=== PATIENT | female | born 1985 | race Caucasian/White ===

== ENCOUNTER 2022-05-11 13:38 | Outpatient (REF) | payer MEDICAID, SELFPAY | END 2022-05-11 13:39 | disposition home or self-care (01) | LOC: LBN 13:38 | PROVIDERS: PCP Specialist/Technologist Athletic Trainer; Visit Provider Physician Assistant | DX: J02.9 Acute pharyngitis, unspecified (principal) | CPT/HCPCS: 87077; 87070 ==

== ENCOUNTER 2023-07-16 09:19 | Emergency (ER) | payer MEDICAID, SELFPAY ==
[2023-07-16 09:25] VITALS: BP 141/88; PULSE 113; RESP 16; TEMP 36.8; O2SAT 99
[2023-07-16 09:36] VITALS: RESP 16
--- NOTE | 2023-07-16 10:29 | W.ED.GENAD ---
Discharge Plan Disposition Patient Disposition: Home Discharge Details Clinical Impression: Acute streptococcal pharyngitis Primary Care Provider: Armand Serrano ED Provider: Kendell Toledo Home Meds and New Rx's Prescriptions: New amoxicillin 500 mg tablet 500 mg PO BID 10 Days Qty: 20 0RF Continued acetaminophen [Tylenol] 325 MG tablet 650 mg PO Q4H PRN [id number] Discharge Instructions Instructions: Strep Throat (ED) Additional Instructions: You may continue to take [id number] acetaminophen or ibuprofen as needed for discomfort. Please stay well-hydrated and take antibiotics as prescribed and for the full 10 days. If you have any new or significant worsening of symptoms feel free to return the emergency department for reassessment otherwise follow-up with your primary care provider if not improving. Referrals: Armand Serrano [Primary Care Provider] - (If not improving please follow-up with your primary care provider) Discharge Data Discharge Date/Time-TO BE ENTERED AT DEPARTURE: 07/16/23 10:40 Medical Decision Making Patient presenting to the emergency department for chief complaint of sore throat. She states some headache and dry cough but the cough she mostly attributes to her irritated throat. Exam consistent with Pharyngitis. no signs of deep neck space infection ( Retropharyngeal abscess, Angel's angina, Parapharyngeal space infection, Peritonsillar Abscess ([employer])) or Epiglottitis. Pt non toxic and stable. Patient negative for COVID and flu and positive for strep pharyngitis. Patient placed upon antibiotics and encouraged to monitor symptoms and return for new or worsening otherwise to follow-up with primary care provider. After discussion of diagnosis and plan of care patient has no further needs, questions, or concerns and states clear understanding to return to the emergency department for any worsening symptoms. This documentation was generated using [employer] system, please disregard any oddities of phrase or misspellings. Lab Data Lab results reviewed: Yes I reviewed the patient's lab results. HPI General Mode of arrival: ambulatory. Date/Time Provider Initiated Documentation: 07/16/23 09:30. Information obtained by: patient and RN notes reviewed. History of Present Illness 38 year old F presents to the emergency department with the chief complaint of Sore throat, described as moderate and severe, Quality is described as aching and sharp, Patient started experiencing this day(s) (1) and it has been constant. No relieving factors improve symptom(s), No exacerbating factors reported . Patient notes headaches. Patient did receive the following treatments prior to arrival, NSAID Related Data Home Medications Medication Instructions Recorded Confirmed acetaminophen 325 mg tablet 650 mg (2 x 325 mg) PO Q4H PRN PRN 09/01/17 07/16/23 (Tylenol) amoxicillin 500 mg tablet 500 mg PO BID 10 days #20 tabs 07/16/23 Previous Rx's Medication Instructions Recorded acetaminophen 325 mg tablet 650 mg (2 x 325 mg) PO Q4H PRN PRN 09/01/17 (Tylenol) amoxicillin 500 mg tablet 500 mg PO BID 10 days #20 tabs 07/16/23 Allergies Allergy/AdvReac Type Severity Reaction Status Date / Time sesonal allergies Allergy Uncoded 07/16/23 09:50 General Stated Complaint: GenMedical YURIY: 4 Review of Systems Constitutional Constitutional: Denies chills, Denies fever(s), Reports headache(s) and Reports malaise ENT Ears, Nose, Mouth, and Throat: Reports headache(s) and Reports sore throat Cardiovascular Cardiovascular: Denies chest pain and Denies dyspnea Respiratory Respiratory: Reports cough and Denies dyspnea Integumentary/Breasts Skin/Breast: Denies rash Neurologic Neurologic: Reports headache(s) PFSH All Active Problems Acute streptococcal pharyngitis (Acute) Anxiety (Acute) Medical History depression associated with first Was treated antidepressiants and took them for 6-7 years, through second . No not taking any medication Depression stopped taking Zanax 1 year ago, feeling well without medication Family History Father Diabetes Mother Depression Sister No problems noted. Sister No problems noted. Brother No problems noted. Brother No problems noted. Daughter No problems noted. Daughter No problems noted. Grandfather , pancreatic cancer Pancreatic cancer Polio Social History Smoking/Tobacco Use Status: Current every day Smoking risk assessment performed?: Yes Alcohol Intake: never Drug use: Daily Substance use type: marijuana Housing: house Do you feel safe at home: Yes Do you feel safe in your relationship?: Yes Exam Const General: cooperative, healthy appearing, comfortable, no acute distress and not ill appearing Orientation: alert, awake and oriented x3 HENMT Head: normal to inspection and normocephalic Ears: hearing grossly normal bilaterally, external ears normal, TM's normal bilaterally and mastoids normal General nose exam: external nose normal and nares normal Face and sinus: normal facial exam and sinuses nontender Mouth: oral mucosae normal, lip normal, tongue normal, no audible dysphonia, no drooling and no trismus Throat: uvula midline, abnormal tonsil bilaterally erythema and hypertrophy 2+ and no peritonsillar masses Neck Neck: normal visual inspection, full ROM, no lymphadenopathy and no meningeal signs Resp Effort & Inspection: normal respiratory effort, able to speak in complete sentences and no stridor Auscultation: clear to auscultation bilaterally Cardio Rate: tachycardic Rhythm: regular rhythm Heart Sounds: S1 normal and S2 normal Skin General skin exam: no rashes or lesions noted Course Vital Signs Vital signs: Vital Signs Temperature 36.8 C 07/16/23 09:25 Pulse 113 H 07/16/23 09:25 Respiratory Rate 16 07/16/23 09:25 Blood Pressure 141/88 H 07/16/23 09:25 Pulse Oximetry 99 07/16/23 09:25 Temperature 36.8 C 07/16/23 09:25 Pulse 113 H 07/16/23 09:25 Respiratory Rate 16 07/16/23 09:36 Respiratory Effort Normal 07/16/23 09:36 Respiratory Depth Normal 07/16/23 09:36 Respiratory Pattern Normal 07/16/23 09:36 Blood Pressure 141/88 H 07/16/23 09:25 Pulse Oximetry 99 07/16/23 09:25 Oxygen Delivery Method Room Air 07/16/23 09:25 Oxygen Flow Rate 0 07/16/23 09:25 Pain Level 3 07/16/23 09:25 Lab/Test Results Lab/Test Results: POC Strep Test-[facility](Rapid) Start: 07/16/23 09:31 Freq: .Rapid Strep Test Status: Active Protocol: Document 07/16/23 09:37 NB (Rec: 07/16/23 09:37 NB [id number]) Strep test-[facility](Rapid)-POC POC-Strep test-[facility] (Rapid) Positive POC-Strep test-[facility] (Rapid) Positive
[2023-07-16] MEDS: Dexamethasone 10 MG/ML VIAL PO (10:39)
[2023-07-16] MEDS: Amoxicillin 500 MG CAP PO (10:39)
== END 2023-07-16 10:40 | disposition home or self-care (01) ==
PROVIDERS: Emergency Provider Nurse Practitioner Family; PCP Specialist/Technologist Athletic Trainer
DX: J02.0 Streptococcal pharyngitis (principal); R51.9 Headache, unspecified
CPT/HCPCS: 87426; 87880; 99283; J1100

== ENCOUNTER 2025-02-19 14:20 | Emergency (ER) | payer SELFPAY ==
[2025-02-19 14:25] VITALS: BP 157/89; PULSE 95; RESP 20; TEMP 36.6; O2SAT 98
--- NOTE | 2025-02-19 14:51 | ED.GENADUL_ITS ---
Discharge Plan Disposition Patient Disposition: Home Condition: Stable Discharge Details Clinical Impression: Dental infection Primary Care Provider: None,None ED Provider: Felipe Perez Home Meds and New Rx's Prescriptions: New chlorhexidine gluconate 0.12 % mouthwash 15 ml buccal TID Qty: 1893 0RF Rx Instructions: swish and spit penicillin V potassium 500 mg tablet 500 mg PO QID 7 Days Qty: 28 0RF Discharge Instructions Additional Instructions: * Start the antibiotic 4 times daily for the next week. This will help prevent infection and abscess development. * Please use the rinse prescribed, 3 times daily after meals. This will help keep your mouth clean especially since brushing might be difficult with your dentition * Return to the emergency department if you develop facial swelling, voice change, difficulty swallowing * Follow-up with dentist for ongoing HPI General Date/Time Provider Initiated Documentation: 02/19/25 14:35 . Limitations to Documentation: no limitations . Information obtained by: patient . HPI Narrative: 39-year-old female without significant past medical history presents for evaluation of dental infection. She reports that she has multiple partially broken teeth with cavities but Monday one of her teeth just broke. She denies any pain in that area but does report that she is terrified of getting an infection and leaving her children for . She denies any facial swelling, fever or gum swelling. Related Data Home Medications ?Medication ?Instructions ?Recorded ?Confirmed chlorhexidine gluconate 0.12 % 15 ml buccal TID #1,893 mL 02/19/25 mouthwash penicillin V potassium 500 mg 500 mg PO QID 7 days #28 tabs 02/19/25 tablet Previous Rx's ?Medication ?Instructions ?Recorded chlorhexidine gluconate 0.12 % 15 ml buccal TID #1,893 mL 02/19/25 mouthwash penicillin V potassium 500 mg 500 mg PO QID 7 days #28 tabs 02/19/25 tablet Allergies Allergy/AdvReac Type Severity Reaction Status Date / Time sesonal allergies Allergy Unknown Uncoded 02/19/25 14:30 General Stated Complaint: DentalOral YURIY: 4 Exam Narrative Exam Narrative: Review of Systems: All systems reviewed & are unremarkable except as noted in HPI and below Well-developed, no acute distress NCAT Floor of mouth is soft afebrile, no facial swelling, no cervical adenopathy Multiple broken teeth and dental caries noted, no tenderness, no gingival irritation or swelling, no appreciable odontogenic tooth 6 appears broken at the gumline and is not tender to touch PERRL, normal conjunctiva RRR Unlabored respiratory effort Course Vital Signs Vital signs: Vital Signs Temperature 36.6 C 02/19/25 14:25 Pulse 95 H 02/19/25 14:25 Respiratory Rate 20 02/19/25 14:25 Blood Pressure 157/89 H 02/19/25 14:25 Pulse Oximetry 98 02/19/25 14:25 Temperature 36.6 C 02/19/25 14:25 Temperature Source Oral 02/19/25 14:25 Pulse 95 H 02/19/25 14:25 Respiratory Rate 20 02/19/25 14:25 Blood Pressure 157/89 H 02/19/25 14:25 Blood Pressure Position Sitting 02/19/25 14:25 Pulse Oximetry 98 02/19/25 14:25 Oxygen Delivery Method Room Air 02/19/25 14:25 Oxygen Flow Rate 0 02/19/25 14:25 Pain Level 0 02/19/25 14:35 Medical Decision Making Emergent evaluation of dental problem. Patient has multiple carious and broken teeth without any evidence of odontogenic abscess. The patient does not currently have a dentist, but is hoping to make an appointment with one soon. On examination, I do recommend that she start penicillin for prophylaxis and I will also prescribe chlorhexidine for cleaning as it seems that she likely has significant difficulty brushing given the state of her dentition. Return precautions advised. Follow-up with dentist when available. Quality:SDOH Health Related Social Needs: No Data to Display PFSH All Active Problems (Updated 02/19/25 @ 14:41 by Felipe Perez MD) Dental infection (Acute) Anxiety (Acute) Medical History depression associated with first Was treated antidepressiants and took them for 6-7 years, through second . No not taking any medication Depression stopped taking Zanax 1 year ago, feeling well without medication Family History Father Diabetes Mother Depression Sister No problems noted. Sister No problems noted. Brother No problems noted. Brother No problems noted. Daughter No problems noted. Daughter No problems noted. Grandfather , pancreatic cancer Pancreatic cancer Polio Social History Smoking/Tobacco Use Status: Current every day Tobacco Type: cigarettes Smoking risk assessment performed?: Yes Alcohol Intake: never Drug use: Daily Substance use type: marijuana Housing: house Do you feel safe at home: Yes Do you feel safe in your relationship?: Yes
== END 2025-02-19 14:50 | disposition home or self-care (01) ==
LOC: ER 14:48
PROVIDERS: Emergency Provider Emergency Medicine
DX: K04.7 Periapical abscess without sinus (principal)
CPT/HCPCS: 99283 ×2